=== PATIENT | male | born 1975 | race Caucasian/White ===

== ENCOUNTER 2020-09-19 15:20 | Outpatient (CLI) | payer BC, OTHER ==
[2020-09-19] MEDS ORDERED: OMNIPAQUE 350 MG/ML, 100ML BOTTLE ONE (17:00)
== END 2020-09-19 23:59 | disposition home or self-care (01) ==
LOC: CFH 15:20
PROVIDERS: ATTEND Family Medicine
DX: K76.0 Fatty (change of) liver, not elsewhere classified (principal)
CPT/HCPCS: 74177; Q9967